=== PATIENT | female | born 1985 | race Caucasian/White ===

== ENCOUNTER 2016-09-18 15:50 | Outpatient (CLI) | payer BC ==
[~2016-09-18] VITALS: Ht 167.6 cm; Wt 72.7 kg
[~2016-09-18 15:50] MED LIST: COLACE 100100 MG/CAP PO; DHA PO; MOTRIN 600600 MG/TAB PO; PERCOCET 325 MG1 TA2 PO; [UNRECOGNIZED DRUG - OTHER] PO
[2016-09-18 16:12] VITALS: BP 129/85; PULSE 71; TEMP 97.7
[2016-09-18] MEDS ORDERED: MULTIPLE VITAMI1 CAP PO (16:19)
[2016-09-18 18:00] VITALS: BP 123/75; PULSE 71
[2016-09-18 18:25] VITALS: BP 112/73; PULSE 73
== END 2016-09-18 18:35 | disposition home or self-care (01) ==
LOC: LDRO 15:50 → LDR 17:54 → LDRO 18:35
DX: O47.1 False labor at or after 37 completed weeks of gestation (principal); O24.410 Gestational diabetes mellitus in pregnancy, diet controlled; Z3A.38 38 weeks gestation of pregnancy
CPT/HCPCS: OP

== ENCOUNTER 2016-09-19 02:49 | Inpatient (IN) | payer BC ==
[2016-09-19] VITALS (32 sets, daily range): BP systolic 101–139; BP diastolic 55–85; PULSE 71–107; TEMP 97.8–98.5
[~2016-09-19] VITALS: Ht 167.6 cm; Wt 72.7 kg
[~2016-09-19 02:49] MED LIST changes: +MULTIPLE VITAMI1 CAP PO
[2016-09-19 08:26] LABS: BASO % 0.2 % (0.0-2.0); GRAN # 8.4 (1.4-6.5); GRAN % 87.5 % (42.2-75.2); HEMATOCRIT 38.7 % (37.0-47.0); HEMOGLOBIN 12.9 g/dl (12.5-16.0); LYMPH # 0.5 (1.2-3.4); LYMPH % 5.4 % (20.0-51.0); MEAN CELL VOLUME 82 fl (80.0-100.0); MEAN CORPUSCULAR HEMOGLOBIN 27 pg (27.0-31.0); MEAN CORPUSCULAR HGB CONC 33 g/dl (33.0-37.0); MEAN PLATELET VOLUME 11.1 fl (7.4-10.4); MONO # 0.6 (0.1-0.6); MONO % 6.6 % (1.7-9.3); PLATELET COUNT 192 K/mm3 (130-400); RED BLOOD COUNT 4.74 M/mm3 (4.10-5.30); REDCELL DISTRIBUTION WIDTH-CV 13.4 % (11.5-14.5); WHITE BLOOD COUNT 9.6 K/mm3 (4.8-10.8)
[2016-09-20 01:00] VITALS: BP 105/68; PULSE 69; TEMP 97.6
[2016-09-20 05:30] VITALS: BP 109/75; PULSE 64; TEMP 97.7
[2016-09-20 08:00] VITALS: BP 110/78; PULSE 77; TEMP 97.5
[2016-09-20] MEDS ORDERED: IBU600 MG PO (11:14)
[2016-09-20] MEDS ORDERED: PERCOCET 325 MG1 TA2 PO (11:14)
[2016-09-20 15:21] VITALS: BP 111/69; PULSE 79; TEMP 97.6
[2016-09-20 20:10] VITALS: BP 125/87; PULSE 74; TEMP 98.1
[2016-09-21 09:30] VITALS: BP 118/69; PULSE 88; TEMP 98.4
== END 2016-09-21 11:40 | disposition home or self-care (01) | DRG 983 ==
LOC: LDRO 02:49 → LDR 07:30 → OB 19:00
PROVIDERS: Obstetrics & Gynecology
PROC: 10E0XZZ Delivery of Products of Conception, External Approach (ICD-10-PCS; principal; 2016-09-19)
PROC: 0HB8XZZ Excision of Buttock Skin, External Approach (ICD-10-PCS; 2016-09-19)
PROC: 0KQM0ZZ Repair Perineum Muscle, Open Approach (ICD-10-PCS; 2016-09-19)
PROC: 0UQMXZZ Repair Vulva, External Approach (ICD-10-PCS; 2016-09-19)
DX: O99.824 Streptococcus B carrier state complicating childbirth (principal); O69.81X0 Labor and delivery complicated by cord around neck, without compression, not applicable or unspecified; O34.211 Maternal care for low transverse scar from previous cesarean delivery; N85.8 Other specified noninflammatory disorders of uterus; O70.1 Second degree perineal laceration during delivery; O70.0 First degree perineal laceration during delivery; O24.420 Gestational diabetes mellitus in childbirth, diet controlled; O99.72 Diseases of the skin and subcutaneous tissue complicating childbirth; L91.8 Other hypertrophic disorders of the skin; Z3A.38 38 weeks gestation of pregnancy; Z37.0 Single live birth
CPT/HCPCS: J2405; J2540; J2590; J2795; J7120

== ENCOUNTER → 2016-10-15 | Outpatient (CLI) | payer BC ==
[~2016-10-15] MED LIST changes: +IBU600 MG PO
== END ==
LOC: OLC 09:50
DX: Z39.1 Encounter for care and examination of lactating mother (principal); Z71.89 Other specified counseling

== ENCOUNTER → 2017-03-18 | Outpatient (CLI) | payer BC | LOC: LAC 09:28 | DX: Z39.1 Encounter for care and examination of lactating mother (principal); Z71.89 Other specified counseling ==

== ENCOUNTER → 2023-10-28 | Outpatient (CLI) | payer BC | LOC: MC.RAD 16:11 | DX: Z12.31 Encounter for screening mammogram for malignant neoplasm of breast (principal) ==